=== PATIENT | male | born 1955 | race Caucasian/White ===

== ENCOUNTER 2018-11-14 00:54 | Emergency (ER) | payer MEDICARE, BC ==
[2018-11-14 01:55] LABS: CHLORIDE,CL 109 mmol/L (98-107); SODIUM,NA 142 mmol/L (136-148)
[2018-11-14] MEDS ORDERED: Ketorolac 30 MG/ML SDV IVPUSH ONE (01:57)
[2018-11-14] MEDS ORDERED: Ketorolac 60 MG/2 ML SDV ONE (02:09)
[2018-11-14] MEDS ORDERED: Ketorolac 60 MG/2 ML SDV IM ONE (02:24)
--- NOTE | 2018-11-14 02:44 | EDM.PDOC ---
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 Past medical history: As per history of present illness and as reviewed below otherwise noncontributory. Surgical history: As per history of present illness and as reviewed below otherwise noncontributory. Social history: No reported history of drug or alcohol abuse. Family history: As per history of present illness and as reviewed below otherwise noncontributory. Physical exam: HEENT: Atraumatic, normocephalic, pupils reactive, negative for conjunctival pallor or scleral icterus, mucous membranes moist, throat clear, neck supple, nontender, trachea midline. Lungs: Clear to auscultation, breath sounds equal bilaterally, chest nontender. Heart: S1S2, regular, negative for clicks, rubs, or JVD. Abdomen: Soft, nondistended, nontender. Negative for masses or hepatosplenomegaly. Negative for costovertebral tenderness. Pelvis: Stable nontender. Genitourinary: Deferred. Rectal: Deferred. Extremities: Atraumatic, negative for cords or calf pain. Neurovascular unremarkable. Neuro: Awake, alert, oriented. Cranial nerves II through XII unremarkable. Cerebellum unremarkable. Motor and sensory unremarkable throughout. Exam nonfocal. Diagnostics: [CBC CMP UA troponin EKG Chest 1 view Right shoulder 3 views ] Therapeutics: [ Toradol 60 IM Toradol Flexeril ] Impression: [ still spasm right shoulder girdle ] Definitive disposition and diagnosis as appropriate pending reevaluation and review of above. Right Shoulder Pain Score (Numeric/FACES): 8 - Related Data Allergies Allergy/AdvReac Type Severity Reaction Status Date / Time No Known Allergies Allergy Verified 11/14/18 01:21 Home Meds: Home Meds Sertraline HCl 25 mg PO DAILY 11/14/18 [History] Past Medical History Other HEENT History: wears glasses Cardiovascular History: Reports: None Respiratory History: Reports: None Gastrointestinal History: Reports: Colon Polyp Other Gastrointestinal History: 15+ Genitourinary History: Reports: None Musculoskeletal History: Reports: None Neurological History: Reports: None Psychiatric History: Reports: Depression Endocrine/Metabolic History: Reports: Obesity/BMI 30+ Hematologic History: Reports: None Immunologic History: Reports: None Oncologic (Cancer) History: Reports: None Dermatologic History: Reports: None - Past Surgical History Head Surgeries/Procedures: Reports: None HEENT Surgical History: Reports: None Cardiovascular Surgical History: Reports: None Respiratory Surgical History: Reports: None Male Surgical History: Reports: None Endocrine Surgical History: Reports: None Neurological Surgical History: Reports: None Musculoskeletal Surgical History: Reports: Other (See Below) Oncologic Surgical History: Reports: None Social & Family History - Family History Family Medical History: Noncontributory - Tobacco Use Smoking Status *Q: Never Smoker - Recreational Drug Use Recreational Drug Use: No Review of Systems - Review of Systems Review Of Systems: See Below ED EXAM, GENERAL - Physical Exam Exam: See Below Course - Vital Signs Last Recorded V/S: Last Vital Signs Temp 97.9 F 11/14/18 01:09 Pulse 71 11/14/18 01:09 Resp BP 164/93 H 11/14/18 01:09 Pulse Ox 97 11/14/18 01:09 - Orders/Labs/Meds Orders: Active Orders 24 hr Category Date Time Status Chest 1V Frontal [CR] Stat Exams 11/14/18 01:04 Taken Shoulder Comp Rt [CR] Stat Exams 11/14/18 01:02 Taken Labs: Laboratory Tests 11/14/18 11/14/18 Range/Units 01:20 01:20 WBC 4.18 (4.0-11.0) K/uL RBC 4.38 L (4.50-5.90) M/uL Hgb 14.2 (13.0-17.0) g/dL Hct 43.5 (38.0-50.0) % MCV 99.3 H (80.0-98.0) fL MCH 32.4 H (27.0-32.0) pg MCHC 32.6 (31.0-37.0) g/dL RDW Std Deviation 54.0 (28.0-62.0) fl RDW Coeff of [place] 15 (11.0-15.0) % Plt Count 172 (150-400) K/uL MPV 10.10 (7.40-12.00) fL Neut % (Auto) 55.5 (48.0-80.0) % Lymph % (Auto) 30.9 (16.0-40.0) % Bay % (Auto) 10.5 (0.0-15.0) % Eos % (Auto) 2.6 (0.0-7.0) % Baso % (Auto) 0.5 (0.0-1.5) % Neut # (Auto) 2.3 (1.4-5.7) K/uL Lymph # (Auto) 1.3 (0.6-2.4) K/uL Bay # (Auto) 0.4 (0.0-0.8) K/uL Eos # (Auto) 0.1 (0.0-0.7) K/uL Baso # (Auto) 0.0 (0.0-0.1) K/uL Nucleated RBC % 0.0 /100WBC Nucleated RBCs # 0 K/uL Sodium 142 (136-148) mmol/L Potassium 4.0 (3.5-5.1) mmol/L Chloride 109 H (98-107) mmol/L Carbon Dioxide 22.9 (21.0-32.0) mmol/L BUN 30 H (7.0-18.0) mg/dL Creatinine 1.2 (0.8-1.3) mg/dL Est Cr Clr Drug Dosing 61.37 mL/min Estimated GFR (MDRD) > 60.0 ml/min Glucose 117 H (74-106) mg/dL Calcium 8.6 (8.5-10.1) mg/dL Total Bilirubin 0.4 (0.2-1.0) mg/dL AST 4 L (15-37) IU/L ALT 17 (14-63) IU/L Alkaline Phosphatase 51 (46-116) U/L Troponin I < 0.050 (0.000-0.056) ng/mL Total Protein 6.7 (6.4-8.2) g/dL Albumin 3.6 (3.4-5.0) g/dL Globulin 3.1 (2.6-4.0) g/dL Albumin/Globulin Ratio 1.2 (0.9-1.6) Meds: Medications Discontinued Medications Generic Name Dose Route Start Last Admin Trade Name Felisa PRN Reason Stop Dose Admin Ketorolac Tromethamine 30 mg 11/14/18 01:57 Toradol IVPUSH 11/14/18 01:58 ONETIME ONE Ketorolac Tromethamine Confirm 11/14/18 02:09 11/14/18 02:25 Toradol Administered 11/14/18 02:10 Not Given Dose 60 mg .ROUTE .STK-MED ONE Ketorolac Tromethamine 60 mg 11/14/18 02:24 11/14/18 02:25 Toradol IM 11/14/18 02:25 60 mg ONETIME ONE Administration Departure - Departure Time of Disposition: 02:44 Disposition: Home, Self-Care 01 Condition: Good Clinical Impression: Muscle spasm - Discharge Information Referrals: PCP,None [Primary Care Provider] - Additional Instructions: The following information is given to patients seen in the emergency department who are being discharged to home. This information is to outline your options for follow-up care. We provide all patients seen in our emergency department with a follow-up referral. The need for follow-up, as well as the timing and circumstances, are variable depending upon the specifics of your emergency department visit. If you don't have a primary care physician on staff, we will provide you with a referral. We always advise you to contact your personal physician following an emergency department visit to inform them of the circumstance of the visit and for follow-up with them and/or the need for any referrals to a consulting specialist. The emergency department will also refer you to a specialist when appropriate. This referral assures that you have the opportunity for follow-up care with a specialist. All of these measure are taken in an effort to provide you with optimal care, which includes your follow-up. Under all circumstances we always encourage you to contact your private physician who remains a resource for coordinating your care. When calling for follow-up care, please make the office aware that this follow-up is from your recent emergency room visit. If for any reason you are refused follow-up, please contact the [facility] emergency department at and asked to speak to the emergency department charge nurse. - My Orders Last 24 Hours: My Active Orders 11/14/18 01:02 Shoulder Comp Rt [CR] Stat 11/14/18 01:04 Chest 1V Frontal [CR] Stat - Assessment/Plan Last 24 Hours: My Active Orders 11/14/18 01:02 Shoulder Comp Rt [CR] Stat 11/14/18 01:04 Chest 1V Frontal [CR] Stat
--- NOTE | 2018-11-14 02:51 | CR ---
INDICATION: Right shoulder pain TECHNIQUE: Chest 1 view COMPARISON: None FINDINGS: Cardiovascular and mediastinum: Normal heart size with aortic tortuosity and atherosclerotic calcification. Lungs and pleural spaces: Lungs are clear. No sign of infiltrate or mass. No sign of pleural effusion. No pneumothorax. Bones and soft tissues: Minimal metal densities overlie the right chest. IMPRESSION: No acute cardiopulmonary abnormality. Dictated by Burton Gavin MD @ Nov 14 2018 2:48AM Signed by Dr. Burton Gavin @ Nov 14 2018 2:49AM
--- NOTE | 2018-11-14 02:51 | CR ---
Indication: Right shoulder pain Technique: Right shoulder 3 views. Comparison: None Findings: Bones: Alignment is normal. No fractures or bone lesions. Joint spaces: Unremarkable. Soft tissues: Metal densities overlie the right chest. Impression: Unremarkable right shoulder series. Dictated by Burton Gavin MD @ Nov 14 2018 2:49AM Signed by Dr. Burton Gavin @ Nov 14 2018 2:50AM
[2018-11-14 02:57] VITALS: BP 139/80
== END 2018-11-14 03:00 | disposition home or self-care (01) ==
LOC: MW.ED 00:54
DX: M62.838 Other muscle spasm (principal); Z79.899 Other long term (current) drug therapy
CPT/HCPCS: 36415; 71045; 73030; 80053; 84484; 85025; 93005; 96372; 99285; J1885; 99283

== ENCOUNTER 2019-09-28 09:11 | Day surgery (SDC) | payer BC, MEDICARE ==
[~2019-09-28 09:11] MED LIST: Lactated Ringers 1,000 ML IV SCH; Lidocaine 2% 5 ML SDV ONE; Propofol 200 MG/20 ML SDV ONE; fentaNYL 100 MCG/2 ML SDV ONE
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
[2019-09-28] MEDS ORDERED: Propofol 200 MG/20 ML SDV ONE (11:57)
[2019-09-28 12:38] VITALS: PULSE 68
--- NOTE | 2019-09-28 12:38 | PCM.OPNOTE ---
- General Post-Op/Procedure Note Date of Surgery/Procedure: 09/28/19 Operative Procedure(s): colonoscopy w bx Findings: see [id number] Pre Op Diagnosis: hx of polyps Post-Op Diagnosis: cecal mass Anesthesia Technique: Moderate Sedation Primary Surgeon: Pradeep Ball Pathology: 1) bx 2cm cecal mass, 2) under 4mm sessile polyps at 70, 70, 65, 60, 50 cm when scope withdrawal Complications: None Condition: Good
--- NOTE | 2019-09-28 12:48 | PCM.POSTAN ---
POST ANESTHESIA ASSESSMENT - MENTAL STATUS Mental Status: Alert, Oriented - VITAL SIGNS Vital Signs: Last Vital Signs Temp 97.5 F 09/28/19 12:10 Pulse 68 09/28/19 12:36 Resp 13 09/28/19 12:36 BP 120/71 09/28/19 12:36 Pulse Ox 96 09/28/19 12:36 - RESPIRATORY Respiratory Status: Respiratory Rate WNL, Airway Patent, O2 Saturation Stable - CARDIOVASCULAR CV Status: Pulse Rate WNL, Blood Pressure Stable - GASTROINTESTINAL GI Status: No Symptoms - POST OP HYDRATION Hydration Status: Adequate & Stable
--- NOTE | 2019-09-28 12:48 | PCM48HPAN ---
Post Anesthesia Note - EVALUATION WITHIN 48HRS OF ANESTHETIC Vital Signs in Normal Range: Yes Patient Participated in Evaluation: Yes Respiratory Function Stable: Yes Airway Patent: Yes Cardiovascular Function Stable: Yes Hydration Status Stable: Yes Pain Control Satisfactory: Yes Nausea and Vomiting Control Satisfactory: Yes Mental Status Recovered: Yes Vital Signs: Last Vital Signs Temp 97.5 F 09/28/19 12:10 Pulse 68 09/28/19 12:36 Resp 13 09/28/19 12:36 BP 120/71 09/28/19 12:36 Pulse Ox 96 09/28/19 12:36
--- NOTE | 2019-09-28 13:58 | OR ---
SURGEON: Pradeep Ball MD DATE OF PROCEDURE: 09/28/2019 PREOPERATIVE DIAGNOSIS: History of polyp. POSTOPERATIVE DIAGNOSIS: Cecal mass. PROCEDURE PERFORMED: Colonoscopy with biopsy. DESCRIPTION OF PROCEDURE: The patient was taken to the endoscopy room. A time out was called, patient identified, and procedure identified. Diprivan was then administrated. Patient went from awake to sleep, hearing doctor talking or door closing is normal. Perineum inspection and digital examination were then performed. A well- lubricated colonoscope was gently inserted through the rectum, advanced past the rectosigmoid junction, the descending colon, splenic flexure, transverse colon, hepatic flexure, ascending colon, arrived to the cecum. Cecum was identified as dictated in the finding. Then the scope was carefully withdrawn while attention was paid to the mucosal surface for any abnormality. Air will be sucked out during the scope withdrawal. At the rectum, retroflexed to examine any rectal diseases, fistula or hemorrhoids. During mucosal examination, abnormality or polyp was noted; picture taken and biopsy performed. Patient tolerated procedure well. There were no intraoperative complications, and Dr. Ball was present throughout the whole procedure. FINDINGS: 1. The patient is easily sedated with [employer] and Diprivan, the patient is soundly snoring. 2. The patient's bowel prep was suboptimal. Large amount of liquid stool and quite a lot of stool ball, probably from the diverticula, and compromised the study requiring tremendous amount of irrigation. The patient's colon is rather straightforward. Cecum indicated by ileocecal fold, one-to-one indentation, appendiceal orifice, and light emittance. Mucosa examined upon scope pulling out. The patient has extensive diverticulosis on the left colon, a little bit on transverse colon, a little bit on the right colon, so the patient has pancolonic diverticulosis. No signs or symptoms of diverticulitis. Next to the appendix in the cecum, there is a cecal mass, sessile in nature. Multiple biopsies have been done. The mass is at least 2 x 1 cm, estimated. While the scope coming out, the patient has a large amount of small polyps and most of them are 2 to 3 mm, almost clinically insignificant and sessile. Suffice to say there is a small polyp at 70, 65, 60, and 50 and at 70 there are two of them. There may be a fold or small polyp, around 2 to 3 mm, at 30 cm when the scope pulling out. However, is not on the other side of the fold and once we had moved it was not able to locate anymore. The patient also has external hemorrhoid, mild. The patient will need to address the cecal mass, either probably will be referred to outside either for saline elevation removal or more likely a laparoscopic colectomy to address the issue, and the patient will return to the office. JAMES / MARLON /[id number] VIKRAM
[2019-09-28 14:53] VITALS: BP 125/78
== END 2019-09-28 13:05 | disposition home or self-care (01) ==
LOC: MW.SDS 09:11
PROVIDERS: ATTEND Surgery
DX: Z12.11 Encounter for screening for malignant neoplasm of colon (principal); D12.0 Benign neoplasm of cecum; D12.6 Benign neoplasm of colon, unspecified; K64.4 Residual hemorrhoidal skin tags; F32.9 Major depressive disorder, single episode, unspecified; N40.0 Benign prostatic hyperplasia without lower urinary tract symptoms; E66.9 Obesity, unspecified; Z79.899 Other long term (current) drug therapy; Z86.010 Personal history of colon polyps; Z98.890 Other specified postprocedural states; Z77.22 Contact with and (suspected) exposure to environmental tobacco smoke (acute) (chronic); Z68.33 Body mass index [BMI] 33.0-33.9, adult
CPT/HCPCS: 45380; J2001; J2704; J3010; J7120; 88305

== ENCOUNTER 2020-05-07 06:56 | Day surgery (SDC) | payer MEDICARE, OTHER ==
[~2020-05-07 06:56] MED LIST changes: -Lidocaine 2% 5 ML SDV ONE; -Propofol 200 MG/20 ML SDV ONE; -fentaNYL 100 MCG/2 ML SDV ONE
[2020-05-07] MEDS ORDERED: Propofol 200 MG/20 ML SDV ONE (07:11)
[2020-05-07] MEDS ORDERED: fentaNYL 100 MCG/2 ML SDV ONE (07:11)
[2020-05-07] MEDS ORDERED: Lidocaine 2% 5 ML SDV ONE (07:11)
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
--- NOTE | 2020-05-07 09:00 | PCM.OPNOTE ---
- General Post-Op/Procedure Note Date of Surgery/Procedure: 05/07/20 Operative Procedure(s): colonoscopy w snare Findings: see [id number] Pre Op Diagnosis: s/p cecal mass removal Post-Op Diagnosis: Same Anesthesia Technique: Moderate Sedation Primary Surgeon: Pradeep Ball Pathology: 4 mm sessile polyp at 95 cm when went in; piece meal of cecal mass residual Complications: None Condition: Good
--- NOTE | 2020-05-07 09:19 | PCM.POSTAN ---
POST ANESTHESIA ASSESSMENT - MENTAL STATUS Mental Status: Alert, Oriented - VITAL SIGNS Vital Signs: Last Vital Signs Temp 36.2 C 05/07/20 08:00 Pulse 64 05/07/20 09:05 Resp 12 05/07/20 09:05 BP 132/80 05/07/20 09:05 Pulse Ox 92 L 05/07/20 09:05 - RESPIRATORY Respiratory Status: Respiratory Rate WNL, Airway Patent, O2 Saturation Stable - CARDIOVASCULAR CV Status: Pulse Rate WNL, Blood Pressure Stable - GASTROINTESTINAL GI Status: No Symptoms - PAIN Pain Score: 0 - POST OP HYDRATION Hydration Status: Adequate & Stable - OBSERVATIONS Free Text/Narrative:: No anesthesia problems
--- NOTE | 2020-05-07 09:32 | PCM48HPAN ---
Post Anesthesia Note - EVALUATION WITHIN 48HRS OF ANESTHETIC Vital Signs in Normal Range: Yes Patient Participated in Evaluation: Yes Respiratory Function Stable: Yes Airway Patent: Yes Cardiovascular Function Stable: Yes Hydration Status Stable: Yes Pain Control Satisfactory: Yes Nausea and Vomiting Control Satisfactory: Yes Mental Status Recovered: Yes Vital Signs: Last Vital Signs Temp 36.2 C 05/07/20 08:00 Pulse 64 05/07/20 09:05 Resp 12 05/07/20 09:05 BP 132/80 05/07/20 09:05 Pulse Ox 92 L 05/07/20 09:05 - COMMENTS/OBSERVATIONS Free Text/Narrative:: No anesthesia problems
[2020-05-07 09:56] VITALS: BP 135/77; PULSE 66
--- NOTE | 2020-05-07 14:13 | OR ---
SURGEON: Pradeep Ball MD DATE OF PROCEDURE: 05/07/2020 PREOPERATIVE DIAGNOSIS: Status post large cecal mass removal. POSTOPERATIVE DIAGNOSIS: Colon polyp. PROCEDURE PERFORMED: Colonoscopy with snare polypectomy. DESCRIPTION OF PROCEDURE: The patient was taken to the endoscopy room. A time out was called, patient identified, and procedure identified. Diprivan was then administrated. Patient went from awake to sleep, hearing doctor talking or door closing is normal. Perineum inspection and digital examination were then performed. A well- lubricated colonoscope was gently inserted through the rectum, advanced past the rectosigmoid junction, the descending colon, splenic flexure, transverse colon, hepatic flexure, ascending colon, arrived to the cecum. Cecum was identified as dictated in the finding. Then the scope was carefully withdrawn while attention was paid to the mucosal surface for any abnormality. Air will be sucked out during the scope withdrawal. At the rectum, retroflexed to examine any rectal diseases, fistula or hemorrhoids. During mucosal examination, abnormality or polyp encountered. Using snare equipment, the abnormality or the polyp was then snared off using electrocautery. The Patient tolerated procedure well. There were no intraoperative complications, and Dr. Ball was present throughout the whole procedure. FINDINGS: 1. The patient is easily sedated with OFFICE LEAD and Diprivan, the patient is soundly snoring. 2. Bowel prep is average. Still has some yellow opaque liquid stool, requiring some irrigation. 3. Colon rather straightforward. Cecum indicated by ileocecal fold, one-to- one indentation, appendiceal orifice. ScopeGuide is pointing south. Light emittance is not observed. Mucosa examined upon scope pulling out. The patient has a 4 mm sessile polyp at distance 95 cm when the scope go in, snared, captured, sent for pathology. At the cecum, there is still a layer of residual polyp that is probably the residual polyp from the previous resection of the cecal mass by piecemeal 6 months ago. It is very small, but it is not fresh, and I used cold biopsy forceps and removed the most I can, and we will see how it goes. Other than that, the patient has moderate amount of diverticulosis on the left colon. No signs or symptoms of diverticulitis. The patient would benefit from repeat colonoscopy in 6 to 12 months from now to look at the cecal place. I will forward those pictures to [place] where he did his cecal mass removal and seek their opinion. JAMES / MARLON /[id number]
== END 2020-05-07 09:48 | disposition home or self-care (01) ==
LOC: MW.SDS 06:56
PROVIDERS: ATTEND Surgery
DX: F32.9 Major depressive disorder, single episode, unspecified (principal); D12.0 Benign neoplasm of cecum; D12.6 Benign neoplasm of colon, unspecified; K57.30 Diverticulosis of large intestine without perforation or abscess without bleeding; F41.9 Anxiety disorder, unspecified; E66.9 Obesity, unspecified; Z79.899 Other long term (current) drug therapy; Z68.36 Body mass index [BMI] 36.0-36.9, adult
CPT/HCPCS: 45385; J2001; J2704; J3010; J7120; 88305